=== PATIENT | female | born 1990 | race American Indian/Alaskan Native ===

== ENCOUNTER 2017-02-17 07:30 | Inpatient (IN) | payer MEDICAID ==
[2017-02-18] MEDS ORDERED: REGLAN IV ONE (21:47)
[2017-02-18] MEDS ORDERED: BICITRA PO ONE (21:47)
[2017-02-18] MEDS ORDERED: PEPCID IV ONE ×2 (21:47→21:52)
--- NOTE | 2017-02-18 21:50 | History and Physical Report ---
History of Present Illness Date of examination: 02/18/17 Date of admission: 02/18/17 21:15 Chief complaint: Labor History of present illness: Pt is a 26yo BF EDC 02/22/17; EGA 39 3/7 weeks presents to L&D complaining of RUC's q 3-4 mins. She received care at [facility] Latent Fingerprint Examiner and was scheduled for a Repeat C Section tomorrow, but is currently in labor and she salazar NOT want a TOLAC. We will therefore proceed with a Repeat C Section. records are not available at this time. Past History Past Medical History: no pertinent history Past Surgical History: section Family/Genetic History: none Social history: no significant social history, single - Obstetrical History Expected Date of Delivery: 02/22/17 Actual Gestation: 39 Week(s) 3 Day(s) : 4 Medications and Allergies Allergies Allergy/AdvReac Type Severity Reaction Status Date / Time No Known Allergies Allergy Verified 01/09/14 12:51 Home Medications Medication Instructions Recorded Confirmed Last Taken Type Pnv95/Ferrous Fumarate/FA 1 tab PO DAILY 01/09/14 04/14/14 04/14/14 History [ Vitamins] Docusate Sodium [Colace] 100 mg PO BID PRN #60 capsule 04/05/14 04/14/14 10:00 Rx 100 Ibuprofen [Motrin 800 MG tab] 800 mg PO Q8H PRN #30 tablet 04/05/14 04/14/1408/18 Rx 800 oxyCODONE /ACETAMINOPHEN [Percocet 1 tab PO Q6HR PRN #30 tablet 04/05/1404/14/14 08:00 Rx 5/325] Ibuprofen [Motrin 800 MG tab] 800 mg PO TID PRN #30 tablet 04/16/14 Unknown Rx Levofloxacin [Levaquin] 500 mg PO QDAY #11 tablet 04/16/14 Unknown Rx metroNIDAZOLE [Flagyl TAB] 500 mg PO Q8HR #33 tablet 04/16/14 Unknown Rx oxyCODONE /ACETAMINOPHEN [Percocet 1 - 2 tab PO Q4HR PRN #30 tablet 04/16/14 Unknown Rx 5/325 mg] Ferrous Sulfate [Feosol 325 MG tab] 325 mg PO BID #60 tablet 02/18/17 Unknown Rx HYDROcodone/APAP 5-325 [[place] 1 each PO Q6HR PRN #30 tablet 02/18/17 Unknown Rx 5/325] Ibuprofen [Motrin] 800 mg PO Q8HR PRN #30 tablet 02/18/17 Unknown Rx Vit W-Ca,Fe,FA(<1 mg) 1 each PO DAILY #30 tablet 02/18/17 Unknown Rx [ Vitamins] Active Meds: Active Medications Citric Acid/Sodium Citrate (Bicitra) 30 ml PO ONCE ONE Stop: 02/18/17 21:48 Famotidine (Pepcid) 20 mg IV ONCE ONE Stop: 02/18/17 21:48 Cefazolin Sodium (Ancef/Sterile Water 2 Gm/20 Ml) 2 gm in 20 mls @ 80 mls/hr IV PREOP NR PRN Reason: Protocol Lactated Ringer's (Lactated Ringers) 1,000 mls @ 2,250 mls/hr IV PREOP [place] Stop: 02/19/17 22:27 Oxytocin/Sodium Chloride (Pitocin/Ns 20 Unit/1000ml Drip) 20 units in 1,000 mls @ 0 mls/hr IV TITR [place] PRN Reason: As Directed Metoclopramide HCl (Reglan) 10 mg IV ONCE ONE Stop: 02/18/17 21:48 Review of Systems All systems: negative - Physical Exam Breasts: Positive: deferred Cardiovascular: Regular rate Lungs: Positive: Clear to auscultation Abdomen: Positive: normal appearance Genitourinary (Female): Positive: normal external genitalia Uterus: Positive: normal size Extremities: Positive: normal - Obstetrical FHR: category 1 Uterine Contraction Monitor Mode: External Cervical Dilatation: 4 Cervical Effacement Percentage: 80 station: -2 Uterine Contraction Pattern: Regular Uterine Tone Measurement Phase: Contraction Uterine Contraction Intensity: Moderate Results Result Diagrams: 02/18/17 21:32 All other labs normal. Assessment and Plan - Patient Problems (1) 39 weeks gestation of Onset Date: 02/18/17 Current Visit: Yes Status: Acute Plan to address problem: A: IUP @ 39 3/7 weeks in labor Previous C Section Unknown GBS P: Admit to L&D for a repeat C Section (2) Previous delivery affecting Onset Date: 02/18/17 Current Visit: Yes Status: Acute
[2017-02-18] MEDS ORDERED: ANCEF/STERILE WATER 2 GM/20 ML 2 GM/20 ML SYRINGE IV ONE (21:52)
[2017-02-18] MEDS ORDERED: LACTATED RINGERS 1,000 ML ONE (21:52)
[2017-02-18] MEDS ORDERED: LACTATED RINGERS 2,000 ML ONE (21:53)
[2017-02-18] MEDS: LACTATED RINGERS 1,000 ML IV SCH ×2 (21:59→23:00)
[2017-02-18] MEDS ORDERED: ANCEF/STERILE WATER 2 GM/20 ML 2 GM/20 ML SYRINGE IV NR (22:00)
[2017-02-18] MEDS ORDERED: PITOCin/NS 20 UNIT/1000ML DRIP 20 UNITS/1,000 ML BAG IV SCH (22:00)
[2017-02-18 22:02] LABS: Basophils % (Auto) 0.3 % (0.0-1.8); Eosinophils % (Auto) 0.1 % (0.0-4.3); Hematocrit 40.2 % (30.3-42.9); Hemoglobin 13.4 gm/dl (10.1-14.3); Mean Corpuscular HGB Conc 33 % (30-34); Mean Corpuscular Hemoglobin 29 pg (28-32); Mean Corpuscular Volume 86 fl (79-97); Red Blood Count 4.66 M/mm3 (3.65-5.03); Red Cell Distribution Width 17.8 % (13.2-15.2); White Blood Count 13.2 K/mm3 (4.5-11.0)
[2017-02-18 22:40] LABS: Platelet Count 207 K/mm3 (140-440)
[2017-02-18] MEDS ORDERED: MORPHINE ONE (22:46)
[2017-02-18] MEDS ORDERED: WATER FOR IRRIG STERILE IR ONE (23:15)
[2017-02-18] MEDS ORDERED: NACL 0.9% IR ONE (23:15)
[2017-02-18] MEDS ORDERED: NEO SYNEPHRINE ONE (23:17)
[2017-02-18] MEDS ORDERED: ZOFRAN ONE (23:17)
[2017-02-18] MEDS ORDERED: NACL 0.9% 100 ML ONE (23:39)
--- NOTE | 2017-02-19 00:14 | Operative Report ---
Operative Report Operative Report: Date of procedure: 02/18/2017 Pre-operative diagnosis: 1. Intrauterine 39-3/7 weeks in labor 2. Previous section Post-operative diagnosis: Same with extensive pelvic adhesions Procedure name(s): 1. Repeat low transverse section 2. Lysis of extensive pelvic adhesions Surgeon: Irineo Ramires MD Currency Examiner: None Anesthesia: Spinal anesthesia by Dr. Weller EBL: 500 MLS Findings: A 3342 g male Apgars 8 at 1 minute 9 at 5 minutes. Meconium fluid. Uterus with extensive pelvic adhesions to the lower uterine segment. Normal tubes and ovaries bilaterally. Procedure: After the patient was prepped and draped in usual sterile fashion, and after satisfactory level of epidural anesthesia was obtained, the skin knife was used to make a transverse skin incision through the previous skin scar. The incision was excised down to layer of the fascia, which was nicked in the midline and extended laterally using the Bovie cautery. The rectus muscles were dissected off the rectus fascia both superiorly and inferiorly. The rectus bellies in the midline, and the peritoneum was entered under direct visualization. The peritoneal incision was extended superiorly and inferiorly. There was extensive pelvic adhesions from the uterus to the rectus muscles, which were taken down using both sharp and blunt dissection. A bladder flap was created and the bladder blade was then placed. The uterus was scored in a curvilinear linear fashion, entered in the midline revealing meconium amniotic fluid. The 's head was delivered onto the surgical field with the aid of a vacuum, and the oropharynx and nasopharynx were bulb suctioned. The rest of the 's body was delivered, cord was doubly clamped and cut and the was handed to the waiting respiratory team. Cord blood was then obtained. The placenta was manually removed from the uterus , however the uterus was not removed from its normal anatomical position due to the extensive adhesions. After gentle uterine lavage, the incision was inspected and found to be without extensions. It was then closed in 2 layers using 0 Vicryl suture in a running interlocking fashion, the second layer imbricating the first. After good hemostasis was achieved, copious amounts or irrigation was performed, and the gutters were suctioned free of blood and blood clots. The Tisseel sealant was sprayed across the uterine incision, and after excellent hemostasis assured, the peritoneum was reapproximated using 3-0 Vicryl suture in a running interlocking fashion, and then the rectus muscles were reapproximated using 3-0 Vicryl suture in a [id number] configuration. The fascia was then reapproximated using 0 Vicryl suture in running interlocking fashion. The subcutaneous layer was made hemostatic using Bovie cautery, the Tisseel sealant was sprayed across the fascial incision and the skin edges reapproximated using 4-0 Vicryl suture in a subcuticular fashion. Patient tolerated the procedure well was transported to recovery in stable condition.
[2017-02-19] MEDS ORDERED: ZOFRAN IV PRN (00:17)
[2017-02-19] MEDS ORDERED: PHENERGAN PR PRN (00:17)
[2017-02-19] MEDS ORDERED: LANSINOH TP PRN (00:17)
[2017-02-19] MEDS ORDERED: TYLENOL PO PRN (00:17)
[2017-02-19] MEDS ORDERED: TUCKS PAD TP PRN (00:17)
[2017-02-19] MEDS ORDERED: SENOKOT PO PRN (00:17)
[2017-02-19] MEDS ORDERED: MYLICON PO PRN (00:17)
[2017-02-19] MEDS ORDERED: TORADOL IV PRN (00:17)
[2017-02-19] MEDS ORDERED: NARCAN 0.4 MG/1 ML IV PRN (00:17)
[2017-02-19] MEDS ORDERED: MILK OF MAGNESIA PO PRN (00:17)
--- NOTE | 2017-02-19 00:22 | Anesthesia Consultation ---
Anesthesia Consult and Med Hx Date of service: 02/19/17 - Airway Anesthetic Teeth Evaluation: Good ROM Head & Neck: Adequate Mental/Hyoid Distance: Adequate Mallampati Class: Class II Intubation Access Assessment: Probably Good - Pulmonary Exam CTA: Yes - Cardiac Exam Cardiac Exam: RRR - Pre-Operative Health Status ASA Pre-Surgery Classification: ASA2 Proposed Anesthetic Plan: Spinal - Pulmonary Hx Asthma: No COPD: No Hx Pneumonia: No - Cardiovascular System Hx Hypertension: No - Central Nervous System Hx Seizures: No Hx Psychiatric Problems: No - Endocrine Hx Renal Disease: No Hx End Stage Renal Disease: No Hx Hypothyroidism: No Hx Hyperthyroidism: No - Hematic Hx Anemia: No Hx Sickle Cell Disease: No - Other Systems Hx Alcohol Use: No Hx Obesity: Yes - Additional Comments Anesthesia Medical History Comments: +IUP
[2017-02-19] MEDS ORDERED: BENADRYL IV PRN (00:23)
[2017-02-19] MEDS ORDERED: MORPHINE IV PRN ×2 (00:23)
--- NOTE | 2017-02-19 00:23 | Post Anesthesia Evaluation ---
- Post Anesthesia Evaluation Patient Participated: Yes Airway Patent: Yes Stable Respiratory Function: Yes Nausea/Vomiting: No Temp > 96.8F: Yes Pain Manageable: Yes Adequeate Hydration: Yes Anesthesia Complications: No Block Receding Appropriately: Yes Patient on Ventilator: No
--- NOTE | 2017-02-19 00:23 | Anesthesia Day of Surgery ---
Anesthesia Day of Surgery - Day of Surgery Patient Examined: Yes Patient H&P Reviewed: Yes Patient is NPO: No (DUE TO URGENCY, WILL PROCEED)
[2017-02-19] MEDS ORDERED: SODIUM CHLORIDE FLUSH SYRINGE 10 ML IV PRN (01:00)
[2017-02-19] MEDS ORDERED: D5LR 1,000 ML IV SCH (01:00)
[2017-02-19] MEDS ORDERED: PITOCin/NS 20 UNIT/1000ML DRIP 20 UNITS/1,000 ML BAG IV SCH (01:00)
[2017-02-19] MEDS: ANCEF/NS 1 GM/50 ML 1 GM/50 ML BAG IV SCH ×2 (05:11→14:22)
--- NOTE | 2017-02-19 10:38 | Progress Note ---
Assessment and Plan A: POD #1 Stable P: Follow Routine Orders D/C Warner and encourage increased ambulation Subjective - Subjective Date of service: 02/19/17 Patient reports: appetite normal, voiding normally (warner in place; adquate urine output), pain well controlled [place]: doing well Objective - Vital Signs Latest vital signs: Vital Signs Temp Pulse Pulse Resp BP BP Pulse Ox 02/19/17 08:09 97.8 F 70 18 110/66 02/19/17 02:00 97.9 F 87 20 115/56 02/19/17 01:20 97.8 F 02/19/17 01:15 80 15 100/44 97 02/19/17 01:00 87 15 101/56 96 02/19/17 00:45 77 16 110/58 97 02/19/17 00:40 79 15 118/56 98 02/19/17 00:36 104 H 21 119/56 97 02/19/17 00:30 89 14 119/56 98 02/19/17 00:25 80 16 105/56 97 02/19/17 00:20 82 15 103/45 98 02/19/17 00:17 98.5 F 02/19/17 00:15 92 H 16 99 02/18/17 22:11 98.4 F 16 02/18/17 22:04 92 H 125/71 Intake and Output 02/18/17 02/19/17 02/19/17 22:59 06:59 14:59 Intake Total 1000 2615 240 Output Total 1025 Balance 1000 1590 240 Intake: IV 1000 2375 Lactated Ringers 1,000 ml 1000 @ 2250 mls/hr IV PREOP [place] Rx#:[id number] PITOCin/NS 20 UNIT/1000ML 625 DRIP 20 units In 1,000 ml @ 250 mls/hr IV DIRECT [place] Rx#:[id number] Oral 240 Intake, Free Water 240 Output: Urine 1025 Indwelling Catheter 800 Other: Total, Intake Amount 120 Total, Output Amount 800 Voiding Method Indwelling Catheter Weight 86.636 kg Estimated Blood Loss 500 - Exam Breasts: Present: normal Cardiovascular: Present: Regular rate Lungs: Present: Clear to auscultation, Normal air movement Abdomen: Present: normal appearance, soft, normal bowel sounds Uterus: Present: normal, firm, fundal height below umbilicus Extremities: Present: normal Incision: Present: normal, dry, dressed - Labs Labs: Abnormal lab results 02/18/17 Range/Units 21:32 WBC 13.2 H (4.5-11.0) K/mm3 RDW 17.8 H (13.2-15.2) % [place] % (Auto) 7.6 H (0.0-7.3) % [place] # 1.0 H (0.0-0.8) K/mm3 Seg Neutrophils % 75.8 H (40.0-70.0) % Seg Neutrophils # 10.0 H (1.8-7.7) K/mm3
[2017-02-19] MEDS: PERCOCET 5/325 PO PRN ×2 (10:42→16:45)
[2017-02-19 14:21] LABS: Hematocrit 36.1 % (30.3-42.9); Hemoglobin 11.7 gm/dl (10.1-14.3)
[2017-02-19] MEDS: FEOSOL PO SCH (16:46)
[2017-02-19] MEDS: PRENATAL VITAMIN PO SCH (16:46)
[2017-02-19] MEDS: MOTRIN PO PRN (16:47)
[2017-02-19] MEDS: NORCO 5/325 PO PRN (21:24)
[2017-02-20] MEDS ORDERED: M-M-R II VACCINE SUB-Q ONE (00:18)
[2017-02-20] MEDS: NORCO 5/325 PO PRN (03:23)
[2017-02-20] MEDS ORDERED: BOOSTRIX IM ONE (06:00)
[2017-02-20] MEDS: PRENATAL VITAMIN PO SCH (08:03)
[2017-02-20] MEDS: FEOSOL PO SCH (08:03)
[2017-02-20] MEDS: MOTRIN PO PRN ×2 (08:04→13:58)
[2017-02-20] MEDS: PERCOCET 5/325 PO PRN ×2 (08:05→13:59)
--- NOTE | 2017-02-20 08:46 | Progress Note ---
Assessment and Plan A: POD # 2 -stable P; Discharge home in am Discharge instructions given Subjective - Subjective Date of service: 02/20/17 Principal diagnosis: Repeat Patient reports: appetite normal : doing well Objective - Vital Signs Latest vital signs: Vital Signs Temp Pulse Resp BP 02/20/17 08:05 20 02/20/17 08:04 20 02/20/17 00:20 99.3 F 91 H 18 91/41 02/19/17 16:06 98.2 F 90 18 100/54 02/19/17 12:30 97.8 F 78 18 104/66 Intake and Output 02/19/17 02/20/17 02/20/17 22:59 06:59 14:59 Intake Total 720 360 Output Total 900 Balance -180 360 Intake: Oral 240 Intake, Free Water 480 360 Output: Urine 900 Void 900 Other: Total, Intake Amount 240 Total, Output Amount 500 Voiding Method Toilet # Voids Void 1 - Exam Breasts: Present: deferred Cardiovascular: Present: Regular rate Lungs: Present: Clear to auscultation Abdomen: Present: soft Uterus: Present: fundal height below umbilicus Extremities: Present: normal Deep Tendon Reflex Grade: Normal +2 Incision: Present: intact
--- NOTE | 2017-02-20 08:49 | Discharge Summary ---
Providers - Providers Date of Admission: 02/18/17 21:15 Date of discharge: 02/21/17 Attending physician: JAMAR MAHONEY MD Primary care physician: JAMAR MAHONEY MD Hospitalization Reason for admission: section Delivery: Procedure: repeat low transverse Incision: intact Other procedures: none complications: none Discharge diagnosis: IUP at term delivered baby: male Condition at discharge: Good Disposition: DISCHARGED TO HOME OR SELFCARE Plan - Discharge Medications Prescriptions: Ferrous Sulfate [Feosol 325 MG tab] 325 mg PO BID #60 tablet HYDROcodone/APAP 5-325 [[place] 5/325] 1 each PO Q6HR PRN #30 tablet PRN Reason: Pain Ibuprofen [Motrin] 800 mg PO Q8HR PRN #30 tablet PRN Reason: Moder Pain Unrelieved By [place] Vit W-Ca,Fe,FA(<1 mg) [ Vitamins] 1 each PO DAILY #30 tablet - Provider Discharge Summary Activity: routine, no sex for 6 weeks, no heavy lifting 4 weeks, no strenuous exercise Diet: routine Instructions: routine Additional instructions: [] Smoking cessation referral if applicable(refer to patient education folder for contact #) [] Refer to [employer] Center Booklet Call your doctor immediately for: * Fever > 100.5 * Heavy vaginal bleeding ( >1 pad per hour) * Severe persistent headache * Shortness of breath * Reddened, hot, painful area to leg or breast * Drainage or odor from incision. * Keep incision clean and dry at all times and follow doctor's instructions regarding bathing/showering - Follow up plan Follow up: [facility] [Provider Group] - 14 Days
[2017-02-20 17:01] VITALS: BP 104/64
== END 2017-02-20 18:30 | disposition home or self-care (01) | DRG 766 ==
LOC: APU 02-18 21:15 → OB 02-19 02:20
PROVIDERS: ADMIT Obstetrics & Gynecology; ATTEND Obstetrics & Gynecology
PROC: 10D00Z1 Extraction of Products of Conception, Low, Open Approach (ICD-10-PCS; principal; 2017-02-18)
PROC: 0DNW0ZZ Release Peritoneum, Open Approach (ICD-10-PCS; 2017-02-18)
DX: O77.0 Labor and delivery complicated by meconium in amniotic fluid (principal); O34.211 Maternal care for low transverse scar from previous cesarean delivery; O99.214 Obesity complicating childbirth; E66.9 Obesity, unspecified; Z68.33 Body mass index [BMI] 33.0-33.9, adult; Z3A.39 39 weeks gestation of pregnancy; Z37.0 Single live birth
CPT/HCPCS: 36415; 85014; 85018; 85025; 86850; 86900; 86901; 88307; 90471; 90715; 99211; A6250; C9250; G0463; J0690; J1885; J2270; J2370; J2405; J2590; J2765; J7120; J7121

== ENCOUNTER 2017-02-18 08:23 | Outpatient (CLI) | payer MEDICAID ==
[2017-02-18] MEDS ORDERED: VISTARIL PO ONE (08:49)
[2017-02-18] MEDS ORDERED: VISTARIL ONE (08:49)
[2017-02-18 09:59] VITALS: BP 116/67
== END 2017-02-18 09:15 | disposition home or self-care (01) ==
LOC: TRG 08:23
PROVIDERS: ATTEND Obstetrics & Gynecology
DX: O47.1 False labor at or after 37 completed weeks of gestation (principal); Z3A.39 39 weeks gestation of pregnancy
CPT/HCPCS: 59025; Q0177

== ENCOUNTER 2018-06-25 15:28 | Emergency (ER) | payer SELFPAY ==
--- NOTE | 2018-06-25 21:10 | Emergency Department Report ---
- General Chief complaint: Extremity Problem,Nontraumatic Stated complaint: SWOLLEN HAND (PAIN) Time Seen by Provider: 06/25/18 21:04 Source: patient Mode of arrival: Ambulatory Limitations: No Limitations - History of Present Illness Initial comments: 27-year-old -[place] female that is now weeks comes in for left middle finger pain and swelling. Patient denies any trauma. She reports that the pain is about a 5 out of 10 minutes and going on since Thursday has not taken anything for pain. She is 3 para 2 no abdominal pain shortness of breathing or chest pain reported. He is not started care has appointment next week. MD complaint: abscess/boil (left middle finger) -: days(s) (4) Location: L hand (middle finger) Severity scale (0 -10): 5 Quality: aching Consistency: intermittent Improves with: none Worsens with: none Context: none Associated symptoms: denies other symptoms Treatments Prior to Arrival: none - Related Data Home Medications Medication Instructions Recorded Confirmed Last Taken Pnv95/Ferrous Fumarate/FA 1 tab PO DAILY 01/09/14 02/19/17 04/14/14 [ Vitamins] Previous Rx's Medication Instructions Recorded Last Taken Type Docusate Sodium [Colace] 100 mg PO BID PRN #60 capsule 04/05/14 04/14/14 10:00 Rx 100 Ibuprofen [Motrin 800 MG tab] 800 mg PO Q8H PRN #30 tablet 04/05/14 04/14/14 Rx 800 oxyCODONE /ACETAMINOPHEN [Percocet 1 tab PO Q6HR PRN #30 tablet 04/05/14 08:00 Rx 5/325] Ibuprofen [Motrin 800 MG tab] 800 mg PO TID PRN #30 tablet 04/16/14 Unknown Rx levoFLOXacin [Levaquin] 500 mg PO QDAY #11 tablet 04/16/14 Unknown Rx metroNIDAZOLE [Flagyl TAB] 500 mg PO Q8HR #33 tablet 04/16/14 Unknown Rx oxyCODONE /ACETAMINOPHEN [Percocet 1 - 2 tab PO Q4HR PRN #30 tablet 04/16/14 Unknown Rx 5/325 mg] Ferrous Sulfate [Feosol 325 MG tab] 325 mg PO BID #60 tablet 02/18/17 Unknown Rx HYDROcodone/APAP 5-325 [[place] 1 each PO Q6HR PRN #30 tablet 02/18/17 Unknown Rx 5/325] Ibuprofen [Motrin] 800 mg PO Q8HR PRN #30 tablet 02/18/17 Unknown Rx Vit Calc,Iron,Folic 1 each PO DAILY #30 tablet 02/18/17 Unknown Rx [ Vitamins] Amoxicillin 500 mg PO BID #10 capsule 06/25/18 Unknown Rx Allergies Allergy/AdvReac Type Severity Reaction Status Date / Time No Known Allergies Allergy Verified 01/09/14 12:51 Abscess Boil HPI - HPI Chief Complaint: Extremity Problem,Nontraumatic Stated Complaint: SWOLLEN HAND (PAIN) Time Seen by Provider: 06/25/18 21:04 Home Medications: Home Medications Medication Instructions Recorded Confirmed Last Taken Pnv95/Ferrous Fumarate/FA 1 tab PO DAILY 01/09/14 02/19/17 04/14/14 [ Vitamins] Previous Rx's Medication Instructions Recorded Last Taken Type Docusate Sodium [Colace] 100 mg PO BID PRN #60 capsule 04/05/14 04/14/14 10:00 Rx 100 Ibuprofen [Motrin 800 MG tab] 800 mg PO Q8H PRN #30 tablet 04/05/14 04/14/14 Rx 800 oxyCODONE /ACETAMINOPHEN [Percocet 1 tab PO Q6HR PRN #30 tablet 04/05/14 08:00 Rx 5/325] Ibuprofen [Motrin 800 MG tab] 800 mg PO TID PRN #30 tablet 04/16/14 Unknown Rx levoFLOXacin [Levaquin] 500 mg PO QDAY #11 tablet 04/16/14 Unknown Rx metroNIDAZOLE [Flagyl TAB] 500 mg PO Q8HR #33 tablet 04/16/14 Unknown Rx oxyCODONE /ACETAMINOPHEN [Percocet 1 - 2 tab PO Q4HR PRN #30 tablet 04/16/14 Unknown Rx 5/325 mg] Ferrous Sulfate [Feosol 325 MG tab] 325 mg PO BID #60 tablet 02/18/17 Unknown Rx HYDROcodone/APAP 5-325 [[place] 1 each PO Q6HR PRN #30 tablet 02/18/17 Unknown Rx 5/325] Ibuprofen [Motrin] 800 mg PO Q8HR PRN #30 tablet 02/18/17 Unknown Rx Vit Calc,Iron,Folic 1 each PO DAILY #30 tablet 02/18/17 Unknown Rx [ Vitamins] Amoxicillin 500 mg PO BID #10 capsule 06/25/18 Unknown Rx Allergies/Adverse Reactions: Allergies Allergy/AdvReac Type Severity Reaction Status Date / Time No Known Allergies Allergy Verified 01/09/14 12:51 ED Review of Systems ROS: Stated complaint: SWOLLEN HAND (PAIN) Other details as noted in HPI Comment: All other systems reviewed and negative ED Past Medical Hx - Past Medical History Hx Hypertension: No Hx Congestive Heart Failure: No Hx Diabetes: No Hx Deep Vein Thrombosis: No Hx Renal Disease: No Hx Sickle Cell Disease: No Hx Seizures: No Hx Asthma: No Hx COPD: No Hx HIV: No - Social History Smoking Status: Never Smoker Substance Use Type: None - Medications Home Medications: Home Medications Medication Instructions Recorded Confirmed Last Taken Type Pnv95/Ferrous Fumarate/FA 1 tab PO DAILY 01/09/14 02/19/17 04/14/14 History [ Vitamins] Docusate Sodium [Colace] 100 mg PO BID PRN #60 capsule 04/05/14 02/19/17 10:00 Rx 100 Ibuprofen [Motrin 800 MG tab] 800 mg PO Q8H PRN #30 tablet 04/05/14 02/19/1708/18 Rx 800 oxyCODONE /ACETAMINOPHEN [Percocet 1 tab PO Q6HR PRN #30 tablet 04/05/1404/14/14 08:00 Rx 5/325] Ibuprofen [Motrin 800 MG tab] 800 mg PO TID PRN #30 tablet 04/16/14 02/19/17 Unknown Rx levoFLOXacin [Levaquin] 500 mg PO QDAY #11 tablet 04/16/14 02/19/17 Unknown Rx metroNIDAZOLE [Flagyl TAB] 500 mg PO Q8HR #33 tablet 04/16/14 02/19/17 Unknown Rx oxyCODONE /ACETAMINOPHEN [Percocet 1 - 2 tab PO Q4HR PRN #30 tablet 04/16/14 Unknown Rx 5/325 mg] Ferrous Sulfate [Feosol 325 MG tab] 325 mg PO BID #60 tablet 02/18/17 Unknown Rx HYDROcodone/APAP 5-325 [[place] 1 each PO Q6HR PRN #30 tablet 02/18/17 Unknown Rx 5/325] Ibuprofen [Motrin] 800 mg PO Q8HR PRN #30 tablet 02/18/17 Unknown Rx Vit Calc,Iron,Folic 1 each PO DAILY #30 tablet 02/18/17 Unknown Rx [ Vitamins] Amoxicillin 500 mg PO BID #10 capsule 06/25/18 Unknown Rx ED Physical Exam - General Limitations: No Limitations General appearance: alert, in no apparent distress - Head Head exam: Present: atraumatic, normocephalic - Eye Eye exam: Present: EOMI - ENT ENT exam: Present: mucous membranes moist - Neurological Exam Neurological exam: Present: alert, oriented X3 - Psychiatric Psychiatric exam: Present: normal affect, normal mood - Expanded Skin Exam Expanded Type of lesion: Present: abscess Distribution of rash: LUE Description of rash: Present: tenderness, swelling, fluctuant ED Course Vital Signs 06/25/18 15:47 Temperature 99.2 F Pulse Rate 97 H Respiratory 16 Rate Blood Pressure 113/67 O2 Sat by Pulse 98 Oximetry Critical care attestation.: If time is entered above; I have spent that time in minutes in the direct care of this critically ill patient, excluding procedure time. ED Disposition Clinical Impression: Paronychia Disposition: DC-01 TO HOME OR SELFCARE Is pt being admited?: No Does the pt Need Aspirin: No Condition: Stable Instructions: [place]onychia (ED) Additional Instructions: Complete antibiotics as prescribed. Tylenol for pain management follow-up with her primary care provider is if persistent or gets worse. He can soak it in warm salt water will help relief of the discomfort. Prescriptions: Amoxicillin 500 mg PO BID #10 capsule Referrals: PRIMARY CARE,MD [Primary Care Provider] - 3-5 Days your,provider [Other] - 3-5 Days
[2018-06-25] MEDS ORDERED: TYLENOL PO ONE (21:16)
[2018-06-25] MEDS ORDERED: TYLENOL ONE (21:20)
[2018-06-25 21:35] VITALS: BP 120/70
== END 2018-06-25 21:35 | disposition home or self-care (01) ==
LOC: ED 15:28
DX: O99.719 Diseases of the skin and subcutaneous tissue complicating pregnancy, unspecified trimester (principal); L03.012 Cellulitis of left finger; Z3A.00 Weeks of gestation of pregnancy not specified
CPT/HCPCS: 99282